=== PATIENT | female | born 1960 | race Caucasian/White ===

== ENCOUNTER 2018-03-02 13:03 | Emergency (ER) | payer BC ==
--- NOTE | 2018-03-02 13:08 | UC ---
Skin Complaint HPI - HPI Summary HPI Summary: 57 yo female presents with right hand puncture wound. She tells me that 5 days ago she was moving her furniture and a nail punctured the right palmar aspect of her hand. She cleansed the area and applied ice. Since that time the area has gotten warm, red, swollen, and increasing painful. Unsure date of last tetanus. Denies fever or chills. - History of Current Complaint Time Seen by Provider: 03/02/18 13:08 Stated Complaint: SKIN CONCERN Hx Obtained From: Patient Hx Last Menstrual Period: N/A Onset/Duration: Gradual Onset Onset Severity: Mild Current Severity: Moderate Pain Intensity: 6 Pain Scale Used: 0-10 Numeric - Allergy/Home Medications Allergies/Adverse Reactions: Allergies Allergy/AdvReac Type Severity Reaction Status Date / Time No Known Allergies Allergy Verified 03/02/18 13:13 Review of Systems All Other Systems Reviewed And Are Negative: Yes Constitutional: Positive: Negative Skin: Positive: Other - Right hand puncture wound Respiratory: Positive: Negative Cardiovascular: Positive: Negative Neurovascular: Positive: Negative Musculoskeletal: Positive: Negative Neurological: Positive: Negative PMH/Surg Hx/FS Hx/Imm Hx - Additional Past Medical History Additional PMH: None - Surgical History Surgical History: None Surgery Procedure, Year, and Place: DENIES - Family History Known Family History: Positive: Hypertension - Social History Occupation: Employed Full-time Lives: With Family Alcohol Use: Occasionally Substance Use Type: None Smoking Status (MU): Never Smoked Tobacco Physical Exam - Summary Physical Exam Summary: GENERAL: NAD. WDWN. No pain distress. SKIN: RIGHT HAND: palm aspect at index MCP with mild edema and hardness. Mild warmth and erythema extending to index PIP. No open wound, drainage, or streaking. NECK: Supple. Nontender. No lymphadenopathy. CHEST: No accessory muscle use. Breathing comfortably and in no distress. CV: Pulses intact. Cap refill <2seconds MSK: RIGHT hand and all fingers FROM. NEURO: Alert. PSYCH: Age appropriate behavior. Triage Information Reviewed: Yes Vital Signs: Vital Signs: Temp Pulse Resp BP Pulse Ox 97.2 F 78 18 150/82 97 03/02/18 13:14 03/02/18 13:14 03/02/18 13:14 03/02/18 13:14 03/02/18 13:14 Vital Signs Reviewed: Yes Course/Dx - Course Course Of Treatment: Cellulitis due to puncture wound will start on her Keflex and have her take ibuprofen and apply ice to the area. tdap updated today. - Diagnoses Provider Diagnoses: Right hand cellulitis s/p puncture wound Discharge - Sign-Out/Discharge Documenting (check all that apply): Patient Departure All imaging exams completed and their final reports reviewed: No Studies - Discharge Plan Condition: Stable Disposition: HOME Prescriptions: Cephalexin CAP* [Keflex CAP*] 500 mg PO BID #14 cap Patient Education Materials: Puncture Wound (ED), Cellulitis (ED) Referrals: Soco GODOY,Lizette Aponte [Primary Care Provider] - Additional Instructions: If you develop a fever, shortness of breath, chest pain, new or worsening symptoms - please call your PCP or go to the ED. Your blood pressure was high at todays visit. Please see your primary provider within 4 weeks for recheck and re-evaluation. 1) Your tetanus shot was updated today - Billing Disposition and Condition Condition: STABLE Disposition: Home - Attestation Statements Provider Attestation: I was available for consult. This patient was seen by the CHUCK. The patient was not presented to, seen by, or examined by me. -Davidson
[2018-03-02 13:17] VITALS: BP 150/82
[2018-03-02] MEDS: Tetan/Diph/Pertus SYR(Tdap)* 0.5 ML SYR(BOOSTRIX) use SYR IM ONE (13:22)
== END 2018-03-02 13:25 | disposition home or self-care (01) ==
LOC: UCCORT 13:03
DX: S61.431A Puncture wound without foreign body of right hand, initial encounter (principal); L03.113 Cellulitis of right upper limb; W26.8XXA Contact with other sharp object(s), not elsewhere classified, initial encounter; Y93.89 Activity, other specified; Y92.009 Unspecified place in unspecified non-institutional (private) residence as the place of occurrence of the external cause
CPT/HCPCS: 90471; 90715; 99212; G0463

== ENCOUNTER 2018-04-25 10:12 | Emergency (ER) | payer BC ==
[2018-04-25 10:34] VITALS: BP 142/81
--- NOTE | 2018-04-25 10:47 | UC ---
UC General HPI - HPI Summary HPI Summary: pt recently tx for a sinus infection with augmentin and got better; however, within 24-48 hours of completing that, pt got ill again with L ear plugged, sinus congestion and cough with chest congestion. has has some post cough vomiting. no cp or hx asthma. uncertain if fever. - History of Current Complaint Chief Complaint: UCRespiratory Stated Complaint: CONGESTION COUGH EARS Time Seen by Provider: 04/25/18 10:33 Hx Obtained From: Patient Hx Last Menstrual Period: N/A Onset/Duration: Gradual Onset Timing: Constant Pain Intensity: 5 Aggravating: NOTHING Associated Signs & Symptoms: Positive: Cough. Negative: Abdominal Pain, Chest Pain, Diarrhea, Dysuria - Allergy/Home Medications Allergies/Adverse Reactions: Allergies Allergy/AdvReac Type Severity Reaction Status Date / Time No Known Allergies Allergy Verified 04/25/18 10:31 Home Medications: Home Medications Cetirizine* [ZyrTEC 10 MG TAB*] 10 mg PO DAILY 04/25/18 [History Confirmed 04/25] Vitamin THERAPEUTIC TAB* [Theragran TAB*] 1 tab PO DAILY 04/25/18 [History Confirmed 04/25/18] PMH/Surg Hx/FS Hx/Imm Hx Previously Healthy: Yes - Surgical History Surgical History: None Surgery Procedure, Year, and Place: DENIES - Family History Known Family History: Positive: Hypertension, Diabetes - Social History Alcohol Use: Occasionally Substance Use Type: None Smoking Status (MU): Never Smoked Tobacco - Immunization History Most Recent Tetanus Shot: 03/02/18 Hx Tetanus, Diphtheria Vaccination: Yes - 03/02/2018 Vaccination Up to Date: Yes Review of Systems All Other Systems Reviewed And Are Negative: Yes Constitutional: Positive: Negative Skin: Positive: Negative Eyes: Positive: Negative ENT: Positive: Ear Ache, Nasal Discharge, Sinus Congestion Respiratory: Positive: Shortness Of Breath, Cough Cardiovascular: Positive: Negative Gastrointestinal: Positive: Negative Genitourinary: Positive: Negative Motor: Positive: Negative Neurovascular: Positive: Negative Musculoskeletal: Positive: Negative Neurological: Positive: Negative Psychological: Positive: Negative Physical Exam Triage Information Reviewed: Yes Appearance: Well-Appearing Vital Signs: Initial Vital Signs Temp 98.6 F 04/25/18 10:28 Pulse 84 04/25/18 10:28 Resp 18 04/25/18 10:28 BP 142/81 04/25/18 10:28 Pulse Ox 96 04/25/18 10:28 Vital Signs Reviewed: Yes Eyes: Positive: Conjunctiva Clear ENT: Positive: Pharyngeal erythema, Nasal congestion, Nasal drainage - CLEAR, TMs normal - R, TM red - L, Uvula midline. Negative: Trismus, Muffled voice, Hoarse voice, Sinus tenderness Neck: Positive: Supple, Nontender, No Lymphadenopathy Respiratory: Positive: No respiratory distress, Decreased breath sounds, Other: - BRONCHOSPATIC NPC. Cardiovascular: Positive: RRR, No Murmur Abdomen Description: Positive: Nontender, No Organomegaly, Soft Bowel Sounds: Positive: Present Musculoskeletal: Positive: ROM Intact Neurological: Positive: Alert Psychological: Positive: Age Appropriate Behavior Skin Exam: Normal Course/Dx - Course Course Of Treatment: PT JUST COMPLETED AUGMENTIN WHICH GIVES GOOD COVERAGE FOR SINUSES, OM AND SOME LUNG THUS THIS IS VIRAL OR ATYPICAL. PT TO USE MDI AND TX SYMPTOMS. IF NOT IMPROVING IN 1-2 DAYS SHE WILL ADD THE ZPAK OR SOONER IF WORSENING PLUS A PROBIOTIC. - Diagnoses Provider Diagnosis: URI (upper respiratory infection), Otitis media, Bronchitis Discharge - Sign-Out/Discharge Documenting (check all that apply): Patient Departure All imaging exams completed and their final reports reviewed: No Studies - Discharge Plan Condition: Stable Disposition: HOME Prescriptions: Albuterol HFA INHALER* [Ventolin HFA Inhaler*] 2 puff INH Q6H #1 mdi Azithromycin TAB* [Zithromax TAB (Z-LUKE) 250 mg #6 tabs] 2 tab PO .TODAY, THEN 1 DAILY #1 luke Patient Education Materials: Ear Infection (ED), Upper Respiratory Infection ( DC), Acute Bronchitis (ED) Referrals: Soco GODOY,Lizette Aponte [Primary Care Provider] - 7 Days Additional Instructions: START THE INHALER NOW. IF NOT IMPROVING IN 1-2 DAYS, START THE ANTIBIOTIC. START IT SOONER IF WORSENING. IF YOU START THE ANTIBIOTIC, START A PROBIOTIC WELL. - Billing Disposition and Condition Condition: STABLE Disposition: Home
== END 2018-04-25 10:55 | disposition home or self-care (01) ==
LOC: UCCORT 10:12
DX: J06.9 Acute upper respiratory infection, unspecified (principal); H66.91 Otitis media, unspecified, right ear; J40 Bronchitis, not specified as acute or chronic
CPT/HCPCS: 99212; G0463

== ENCOUNTER 2019-06-24 11:37 | Emergency (ER) | payer BC ==
[2019-06-24 13:26] VITALS: BP 132/81
--- NOTE | 2019-06-24 13:28 | UC ---
FLU HPI - HPI Summary HPI Summary: 58 yo female presents with flu-like symptoms. She tells me that over the last week she has been taking care of her roommate who tested positive for the flu. 2 days ago pt developed body aches, fatigue, sinus congestion, and dry cough. She is concerned she has the flu. She did not get the flu shot this year. Unsure if she has had a fever as she has not taken her temperature. Denies SOB, chest pain, abdominal pain, n/v/d/c, dysuria. - History of Current Complaint Chief Complaint: UCRespiratory Stated Complaint: SINUS, COUGH, SORE THROAT Time Seen by Provider: 06/24/19 13:27 Hx Obtained From: Patient Hx Last Menstrual Period: N/A Onset/Duration: Sudden Onset Severity Currently: Mild Severity Initially: Mild Pain Intensity: 4 Pain Scale Used: 0-10 Numeric - Allergy/Home Medications Allergies/Adverse Reactions: Allergies Allergy/AdvReac Type Severity Reaction Status Date / Time No Known Allergies Allergy Verified 06/24/19 13:22 Home Medications: Home Medications Oseltamivir CAP* [Tamiflu CAP*] 75 mg PO BID #10 cap 06/24/19 [Rx] PMH/Surg Hx/FS Hx/Imm Hx - Additional Past Medical History Additional PMH: None - Surgical History Surgical History: Yes Surgery Procedure, Year, and Place: LEFT hip replacement - Family History Known Family History: Positive: Hypertension, Diabetes - Social History Lives: With Family Alcohol Use: Occasionally Substance Use Type: None Smoking Status (MU): Never Smoked Tobacco - Immunization History Most Recent Tetanus Shot: 03/02/18 Hx Tetanus, Diphtheria Vaccination: Yes - 03/02/2018 Vaccination Up to Date: Yes Review of Systems All Other Systems Reviewed And Are Negative: No Constitutional: Positive: Fatigue, Other - Body aches Skin: Positive: Negative Eyes: Positive: Negative ENT: Positive: Sinus Congestion Respiratory: Positive: Cough Cardiovascular: Positive: Negative Gastrointestinal: Positive: Negative Neurological/Mental Status: Positive: Negative Psychological: Positive: Negative Physical Exam - Summary Physical Exam Summary: GENERAL: NAD. WDWN. No pain distress. SKIN: No rashes, sores, lesions, or open wounds. HEENT: Head: AT/NC Eyes: EOM intact. Conjunctiva clear without inflammation or discharge. Ears: Hearing grossly normal. TMs intact, no bulging, erythema, or edema. Nose: Nasal mucosa pink and moist. NTTP maxillary and frontal sinus. Throat: Posterior oropharynx without exudates, erythema, or tonsillar enlargement. Uvula midline. NECK: Supple. Nontender. No lymphadenopathy. CHEST: CTAB. No r/r/w. No accessory muscle use. Breathing comfortably and in no distress. CV: RRR. Pulses intact. Cap refill <2seconds NEURO: Alert. PSYCH: Age appropriate behavior. Triage Information Reviewed: Yes Vital Signs: Initial Vital Signs Temp 97.5 F 06/24/19 13:22 Pulse 60 06/24/19 13:22 Resp 18 06/24/19 13:22 BP 132/81 06/24/19 13:22 Pulse Ox 100 06/24/19 13:22 Vital Signs Reviewed: Yes Flu Course/Dx - Course Course Of Treatment: Given exposure and symptomatic - will treat as flu positive. Pt elected not to have POC testing today. - Differential Dx/Diagnosis Provider Diagnosis: Influenza Discharge ED - Sign-Out/Discharge Documenting (check all that apply): Patient Departure All imaging exams completed and their final reports reviewed: No Studies - Discharge Plan Condition: Stable Disposition: HOME Prescriptions: Oseltamivir CAP* [Tamiflu CAP*] 75 mg PO BID #10 cap Patient Education Materials: Influenza (ED) Referrals: Soco GODOY,Lizette Aponte [Primary Care Provider] - Additional Instructions: Most people with the flu recover within one to two weeks without treatment. However, serious complications of the flu can occur. Go to the ER immediately if you: -- You feel short of breath or have trouble breathing -- You have pain or pressure in your chest or stomach -- You have signs of being dehydrated, such as dizziness when standing or not passing urine -- You feel confused -- You cannot stop vomiting or you cannot drink enough fluids There are several groups of people who are at increased risk for flu complications. These include women, young children (<5 years of age and especially <2 years of age), people older than 65 years of age, and people with certain diseases such as chronic lung disease (such as asthma), heart disease, diabetes, immunosuppressing conditions (such as HIV infection or transplantation), and some other diseases. Treat symptoms Treating the symptoms of influenza can help you to feel better but will not make the flu go away faster. -- Rest until the flu is fully resolved, especially if the illness has been severe. -- Fluids Drink enough fluids so that you do not become dehydrated. One way to it help desk associate if you are drinking enough is to look at the color of your urine. Normally, urine should be light yellow to nearly colorless. If you are drinking enough, you should pass urine every three to five hours. -- Acetaminophen (sample brand name: Tylenol) can relieve fever, headache, and muscle aches. Aspirin and medicines that include aspirin (eg, bismuth subsalicylate [sample brand name: Pepto-Bismol]) are not recommended for children under 18 because aspirin can lead to a serious disease called Arcelia syndrome. -- Cough medicines are not usually helpful; cough usually resolves without treatment. We do not recommend cough or cold medicine for children under age 6 years. Antiviral treatment Antiviral medicines can be used to treat or prevent influenza. When used as a treatment, the medicine does not eliminate flu symptoms, although it can reduce the severity and duration of symptoms by about one day. Not every person with influenza needs an antiviral medicine, but some people do; the decision is based upon several factors. If you are severely ill and/or have risk factors for developing complications of influenza, you will need an antiviral agent. People who are only mildly ill and have no risk factors for complications usually do not need to be treated with antiviral medication. - Billing Disposition and Condition Condition: STABLE Disposition: Home
== END 2019-06-24 13:42 | disposition home or self-care (01) ==
LOC: UCCORT 11:37
DX: J11.1 Influenza due to unidentified influenza virus with other respiratory manifestations (principal)
CPT/HCPCS: 99212; G0463

== ENCOUNTER 2019-06-26 14:17 | Emergency (ER) | payer BC ==
[2019-06-26 15:21] VITALS: BP 121/80
--- NOTE | 2019-06-26 15:46 | UC ---
Respiratory Complaint HPI - HPI Summary HPI Summary: cough x 1 3 days cough is dry , worse with deep breathing, better with rest and fluid chest tightness, wheezing, + for Flu 3 days ago, no fever, no chills, - History of Current Complaint Chief Complaint: UCRespiratory Stated Complaint: COUGH,HEADACHE,ACHES Time Seen by Provider: 06/26/19 15:26 Hx Obtained From: Patient Hx Last Menstrual Period: N/A Onset/Duration: Gradual Onset, Lasting Days - 3 Timing: Constant Severity Initially: Moderate Severity Currently: Moderate Pain Intensity: 5 Pain Scale Used: 0-10 Numeric Character: Cough: Nonproductive Aggravating Factors: Exertion, Deep Breaths Alleviating Factors: Nothing Associated Signs And Symptoms: Positive: Dyspnea, Wheezing, URI, Nasal Congestion. Negative: Fever, Chills, Pleuritic Chest Pain, Hemoptysis, Dizziness, Calf Pain, Calf Swelling - Allergies/Home Medications Allergies/Adverse Reactions: Allergies Allergy/AdvReac Type Severity Reaction Status Date / Time No Known Allergies Allergy Verified 06/26/19 15:17 Home Medications: Home Medications Oseltamivir CAP* [Tamiflu CAP*] 75 mg PO BID #10 cap 06/24/19 [Rx Confirmed ] Acetaminophen [Tylenol Extra Strength] 1,000 mg PO ONCE 06/26/19 [History Confirmed 06/26/19] Albuterol HFA INHALER* [Ventolin HFA Inhaler*] 2 puff INH Q6H PRN #1 mdi [Rx] Benzonatate CAP* [Tessalon 100 MG CAP*] 100 mg PO TID PRN #21 cap 06/26/19 [Rx] Cetirizine* [ZyrTEC 10 MG TAB*] 10 mg PO DAILY 06/26/19 [History Confirmed 06/25] predniSONE [Prednisone 20 MG TAB] 20 mg PO BID #10 tablet 06/26/19 [Rx] PMH/Surg Hx/FS Hx/Imm Hx Previously Healthy: Yes - Surgical History Surgical History: Yes Surgery Procedure, Year, and Place: LEFT hip replacement - Family History Known Family History: Positive: Hypertension, Diabetes - Social History Alcohol Use: Occasionally Substance Use Type: None Smoking Status (MU): Never Smoked Tobacco - Immunization History Most Recent Tetanus Shot: 03/02/18 Hx Tetanus, Diphtheria Vaccination: Yes - 03/02/2018 Vaccination Up to Date: Yes Review of Systems All Other Systems Reviewed And Are Negative: Yes Constitutional: Positive: Negative Skin: Positive: Negative Eyes: Positive: Negative ENT: Positive: Negative Respiratory: Positive: Shortness Of Breath, Cough Cardiovascular: Positive: Negative Is Patient Immunocompromised?: No Physical Exam Triage Information Reviewed: Yes Appearance: Well-Appearing, No Pain Distress, Well-Nourished Vital Signs: Initial Vital Signs Temp 98.1 F 06/26/19 15:15 Pulse 65 06/26/19 15:15 Resp 18 06/26/19 15:15 BP 121/80 06/26/19 15:15 Pulse Ox 99 06/26/19 15:15 Vital Signs Reviewed: Yes Eye Exam: Normal Eyes: Positive: Conjunctiva Clear ENT: Positive: Normal ENT inspection, Hearing grossly normal, Pharynx normal Neck: Positive: Supple, Nontender, No Lymphadenopathy Respiratory: Positive: Chest non-tender, No respiratory distress, No accessory muscle use, Wheezing. Negative: Respiratory distress, Decreased breath sounds Cardiovascular: Positive: RRR, No Murmur, Pulses Normal Respiratory Course/Dx - Differential Dx/Diagnosis Provider Diagnosis: Bronchitis Discharge ED - Sign-Out/Discharge Documenting (check all that apply): Patient Departure All imaging exams completed and their final reports reviewed: No Studies - Discharge Plan Condition: Stable Disposition: HOME Prescriptions: Albuterol HFA INHALER* [Ventolin HFA Inhaler*] 2 puff INH Q6H PRN #1 mdi PRN Reason: Wheezing Benzonatate CAP* [Tessalon 100 MG CAP*] 100 mg PO TID PRN #21 cap PRN Reason: Cough predniSONE [Prednisone 20 MG TAB] 20 mg PO BID #10 tablet Patient Education Materials: Acute Bronchitis (ED) Referrals: [facility] OGDOY,Lizette Aponte [Primary Care Provider] - 7 Days - Billing Disposition and Condition Condition: STABLE Disposition: Home
== END 2019-06-26 15:37 | disposition home or self-care (01) ==
LOC: UCCORT 14:17
DX: J40 Bronchitis, not specified as acute or chronic (principal); Z96.642 Presence of left artificial hip joint
CPT/HCPCS: 99212; G0463